=== PATIENT | female | born 1950 | race Caucasian/White ===

== ENCOUNTER → 2023-07-01 14:16 | Outpatient (REF) | payer OTHER, SELFPAY | LOC: WDC 14:16 | PROVIDERS: ATTENDING PHYSICIAN Family Medicine | DX: Z12.31 Encounter for screening mammogram for malignant neoplasm of breast (principal) | CPT/HCPCS: 77063; 77067 ==

== ENCOUNTER → 2023-09-04 09:47 | Outpatient (REF) | payer OTHER, SELFPAY | LOC: RAD 09:47 | PROVIDERS: ATTENDING PHYSICIAN Nurse Practitioner Family | DX: R91.1 Solitary pulmonary nodule (principal) | CPT/HCPCS: 71260; Q9967 ==

== ENCOUNTER → 2023-12-01 06:21 | Day surgery (SDC) | payer OTHER, SELFPAY | LOC: GI 06:21 | PROVIDERS: ATTENDING PHYSICIAN Internal Medicine | DX: Z12.11 Encounter for screening for malignant neoplasm of colon (principal); K51.00 Ulcerative (chronic) pancolitis without complications; K62.1 Rectal polyp; K51.40 Inflammatory polyps of colon without complications; K64.5 Perianal venous thrombosis | CPT/HCPCS: 45380; 88305 ==

== ENCOUNTER 2024-06-27 13:56 | Emergency (ER) | payer OTHER, SELFPAY ==
[2024-06-27 14:11] VITALS: BP 130/67
--- NOTE | 2024-06-27 16:00 | ED.GENMED ---
History of Present Illness
General
Chief Complaint: Back Pain
Source: patient
Exam Limitations: none
Time Seen by Provider: 06/27/24 16:00
Nursing documentation reviewed up to this point in time: agreed with
History of Present Illness
History of Present Illness:
73-year-old female presents with right lower back pain for the past 5 days after golfing for the first time this year and doing 'more exercises than usual.' She denies saddle area numbness or weakness in her legs. No loss of control of bowel or
bladder.
She has a history of colitis on Mesalamine. She does not want steroids. She has been taking Ibuprofen with some relief.
Past History
Past History
ED Past Medical History: Other (Ulcerative colitis on Mesalamine)
ED Past Surgical History: None
Social History
Tobacco: Non-smoker
Alcohol: Occasional
Personal:
Living: with family
Review of Systems
Review of Systems
Allergies reviewed?: Yes
All Other Systems: ROS reviewed and negative except as documented in HPI and ROS
Constitutional: Denies fever
ABD/GI: Denies abdominal pain
: Denies dysuria, incontinence or difficulty voiding
Musculoskeletal: Reports back pain (right lower back pain)
Skin: Reports no symptoms
Neurological: Reports no symptoms
Phy Exam
Physical Exam
Physical Exam:
GENERAL: No acute distress. A&Ox3.
CONSTITUTIONAL: Afebrile.
RESPIRATORY: Regular respirations, nonlabored, lungs clear.
CARDIOVASCULAR: Regular rate and rhythm, no murmurs, no rubs.
GI: Soft, nontender, normal BS
MUSCULOSKELETAL: Tender to palpate over right SI joint. No spinal bony tenderness. Ambulating well. Moves with ease. Pain aggravated with forward flexion and direct palpation. Well perfused.
SKIN: Warm, dry, pink
PSYCH: Normal mood and affect. Well kept, interactive and appropriate
NEUROLOGIC: Awake, alert and oriented. No focal neurological deficits. Ambulates well with steady gait
Course
Vital Signs
Initial and Last Documented VS:
Initial Vital Signs
Temp Pulse Resp BP Pulse Ox
97.9 F 77 18 130/67 98
06/27/24 14:11 06/27/24 14:11 06/27/24 14:11 06/27/24 14:11 06/27/24 14:11
Last Documented Vital Signs
Temp Pulse Resp BP Pulse Ox
97.9 F 77 18 130/67 98
06/27/24 14:11 06/27/24 14:11 06/27/24 14:11 06/27/24 14:11 06/27/24 14:11
MDM/Problems Addressed
Differential Diagnosis Includes:
low back strain, SI joint sprain
MDM/Problems Addressed:
73-year-old female presents with right lower back pain for the past 5 days after golfing for the first time this year and doing 'more exercises than usual.' She denies saddle area numbness or weakness in her legs. No loss of control of bowel or
bladder.
She has a history of colitis on Mesalamine. She does not want steroids. She has been taking Ibuprofen with some relief.
Pt moving well, no significant pain.
Getting relief with Ibuprofen
Most likely SI joint strain/sprain from recent significant increase in activity. She agrees
She requests rx for Ibuprofen 600 mg tabs, does not want any other medication. Rx sent to her pharmacy
Pt ambulated out with normal gait at discharge
*Critical Care Note
Total Time (30-74mins, 75-104mins- exclusive of procedures): Not Applicable
ED Attending Note
-
Portions of this chart may have been created with voice recognition software.� Occasional wrong word or��sound alike� substitutions may have occurred due to the inherent limitations of voice recognition software.
Discharge Plan
Departure
Patient Disposition: Home (Routine Discharge)
Date of Disposition: 06/27/24
Time of Disposition: 16:01
Patient with high blood pressure during this ER visit?: No
Condition: Good
Discharge Problem:
Low back strain
Instructions: Low Back Pain (DC)
Prescriptions:
New
ibuprofen 600 mg tablet
600 mg PO TID PRN (Reason: Pain) Qty: 60 0RF
Activity Restrictions/Additional Instructions:
As we discussed, I sent a prescription to your pharmacy for ibuprofen 600 mg tablets to take up to 3 times a day as needed but for no more than 2 weeks.
Limit activity and as your back is feeling better move around more and more as comfort permits. You may alternate cold compresses with warm compresses and stick with whichever feels better.
Interventions
Interventions:
*Risk Screen - Suicide Last Done: 06/27/24 14:11
*General Assessment Last Done: 06/27/24 14:11
*Neglect/Abuse Screening Last Done: 06/27/24 16:22
*ED- Fall Risk Assessment Last Done: 06/27/24 15:59
*ED COVID-19 Vaccine History Last Done: 06/27/24 15:59
*Nursing Disposition Last Done: 06/27/24 16:22
ED-Musculoskeletal Assessment Last Done: 06/27/24 16:22
Discharge Date and Time
Discharge Date/Time: 06/27/24 16:23
Print Language: ICELANDIC
== END 2024-06-27 16:23 | disposition home or self-care (01) ==
LOC: EMR 13:56
PROVIDERS: EMERGENCY PHYSICIAN Emergency Medicine; FAMILY PHYSICIAN Nurse Practitioner Family
DX: S39.012A Strain of muscle, fascia and tendon of lower back, initial encounter (principal); X58.XXXA Exposure to other specified factors, initial encounter
CPT/HCPCS: 99282

== ENCOUNTER → 2024-07-06 14:13 | Outpatient (REF) | payer OTHER, SELFPAY | LOC: WDC 14:13 | PROVIDERS: ATTENDING PHYSICIAN Nurse Practitioner Family | DX: Z12.31 Encounter for screening mammogram for malignant neoplasm of breast (principal) | CPT/HCPCS: 77063; 77067 ==

== ENCOUNTER → 2024-09-29 07:42 | Outpatient (REF) | payer OTHER, SELFPAY | LOC: HWRAD 07:42 | PROVIDERS: ATTENDING PHYSICIAN Nurse Practitioner Family | DX: R91.1 Solitary pulmonary nodule (principal); M35.00 Sjogren syndrome, unspecified; Z13.820 Encounter for screening for osteoporosis | CPT/HCPCS: 71250; 77080 ==